=== PATIENT | female | born 1955 | race Caucasian/White ===

== ENCOUNTER 2019-02-19 14:42 | Emergency (ER) | payer MEDICARE, MEDICAID ==
[~2019-02-19] VITALS: Ht 160 cm; Wt 57.3 kg
[2019-02-19 14:54] VITALS: BP 120/77; TEMP 98.4
[2019-02-19] MEDS ORDERED: ALLEGRA 60MG TA60 MG PO (15:01)
[2019-02-19] MEDS ORDERED: MULTI VITAMINS1 TAB PO (15:01)
[2019-02-19] MEDS ORDERED: PROAIR HFA0.09 MG/AC IH (15:02)
[2019-02-19] MEDS ORDERED: PRILOTC (15:02)
[2019-02-19 15:57] VITALS: PULSE 62
== END 2019-02-19 15:57 | disposition home or self-care (01) ==
LOC: COL.ER 14:42
DX: M79.671 Pain in right foot (principal); J45.909 Unspecified asthma, uncomplicated; K21.9 Gastro-esophageal reflux disease without esophagitis; F17.210 Nicotine dependence, cigarettes, uncomplicated; Z98.84 Bariatric surgery status; Z98.890 Other specified postprocedural states; X50.1XXA Overexertion from prolonged static or awkward postures, initial encounter; Y92.009 Unspecified place in unspecified non-institutional (private) residence as the place of occurrence of the external cause